=== PATIENT | female | born 1995 ===

== ENCOUNTER 2022-07-06 09:24 | Outpatient (CLI) | payer OTHER | END 2022-07-06 10:38 | disposition home or self-care (01) | LOC: PRENATAL 09:24 | PROVIDERS: ATTEND Obstetrics & Gynecology Maternal & Fetal Medicine | DX: O35.0XX0 Maternal care for (suspected) central nervous system malformation in fetus, not applicable or unspecified (principal); O35.3XX0 Maternal care for (suspected) damage to fetus from viral disease in mother, not applicable or unspecified; O99.891 Other specified diseases and conditions complicating pregnancy; Z3A.22 22 weeks gestation of pregnancy ==

== ENCOUNTER 2025-09-14 12:34 | Outpatient (CLI) | payer OTHER | END 2025-09-14 12:36 | disposition home or self-care (01) | LOC: PRENATAL 12:34 | PROVIDERS: ATTEND Obstetrics & Gynecology Maternal & Fetal Medicine | DX: O44.02 Complete placenta previa NOS or without hemorrhage, second trimester (principal); Z3A.20 20 weeks gestation of pregnancy ==